=== PATIENT | female | born 1955 | race Caucasian/White ===

== ENCOUNTER 2016-09-17 08:03 | Emergency (ER) | payer OTHER ==
[2016-09-17 08:17] VITALS: BP 131/73
[2016-09-17] MEDS ORDERED: Sodium Chloride 0.9% 1,000 ML IV ONE (08:55)
[2016-09-17 09:06] LABS: CHLORIDE,CL 104 mmol/L (98-115); SODIUM,NA 141 mmol/L (136-145)
--- NOTE | 2016-09-17 09:44 | EDM.PDOC ---
ED HPI GENERAL MEDICAL PROBLEM - General Chief Complaint: Cardiovascular Problem Time Seen by Provider: 09/17/16 08:28 Source of Information: Reports: Patient History Limitations: Reports: No Limitations - History of Present Illness INITIAL COMMENTS - FREE TEXT/NARRATIVE: Patient presents with feelings of racing heart and ache in neck and jaw that started 2.5 hours ago when she got up this morning. She went to work but was not feeling well so came in. She was feeling quite anxious as well as the above symptoms. No chest pain/pressure, nausea, diaphoresis or arm pain. She thinks she is in Atrial Flutter as she has had this on two other occasions: 8 and 12 months ago. On each of those occasions she was successfully cardioverted in her home state of [place]. 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 She takes Eliquis and Cardizem for her Atrial Flutter. A month ago her cardizem was decreased from 240 mg to 120 mg qd, but this morning when she felt the fast heart rate she took the 240 dose. Currently the ache in her neck and jaw is minimal. Bilateral Face Pain Score (Numeric/FACES): 2 - Related Data Allergies Allergy/AdvReac Type Severity Reaction Status Date / Time cefazolin [From Anc] Allergy Hives Verified 09/17/16 08:13 codeine Allergy Irritabilit Verified 09/17/16 08:13 y Home Meds: Home Meds Apixaban [Eliquis] 1 tab PO BID 09/17/16 [History] Biotin 1 cap PO DAILY 09/17/16 [History] Diltiazem HCl [Cardizem LA] 120 mg PO DAILY 09/17/16 [History] Dronedarone HCl [Multaq] 1 tab PO BID 09/17/16 [History] Past Medical History HEENT History: Reports: Impaired Vision Cardiovascular History: Reports: Other (See Below) Other Cardiovascular History: Aflutter with 2 cardioversions in last year Gastrointestinal History: Reports: None, Hiatal Hernia Musculoskeletal History: Reports: None Hematologic History: Reports: Anesthesia Reaction - Infectious Disease History Infectious Disease History: Reports: Chicken Pox, Measles, Mumps, Shingles - Past Surgical History Head Surgeries/Procedures: Reports: None HEENT Surgical History: Reports: Adenoidectomy, Tonsillectomy Cardiovascular Surgical History: Reports: None GI Surgical History: Reports: Bariatric Procedure, Cholecystectomy, Colonoscopy , EGD Female Surgical History: Reports: Other (See Below) Other Female Surgeries/Procedures: bladder sleeves x 2. Musculoskeletal Surgical History: Reports: Arthroscopic Knee, Hip Replacement Dermatological Surgical History: Reports: None Social & Family History - Family History Family Medical History: Noncontributory - Tobacco Use Smoking Status *Q: Current Some Day Smoker Years of Tobacco use: 30 Packs/Tins Daily: 0.2 Used Tobacco, but Quit: No Second Hand Smoke Exposure: No - Caffeine Use Caffeine Use: Reports: None - Recreational Drug Use Recreational Drug Use: Yes Drug Use in Last 12 Months: No Recreational Drug Type: Reports: Marijuana/Hashish Other Recreational Drug Type: used in college Recreational Drug Use Frequency: Not Used In Over 1 Year ED ROS GENERAL - Review of Systems Review Of Systems: See Below Constitutional: Denies: Fever, Chills, Weakness, Diaphoresis HEENT: Denies: Throat Pain, Vision Change Respiratory: Denies: Shortness of Breath, Cough Cardiovascular: Denies: Chest Pain, Lightheadedness, Syncope GI/Abdominal: Denies: Abdominal Pain, Nausea, Vomiting : Denies: Dysuria, Flank Pain Musculoskeletal: Denies: Shoulder Pain, Arm Pain Skin: Denies: Cyanosis, Jaundice, Mottled, Pallor, Diaphoresis Neurological: Denies: Confusion, Dizziness, Headache, Numbness, Trouble Speaking Psychiatric: Reports: Anxiety. Denies: Agitation, Confusion ED EXAM, GENERAL - Physical Exam Exam: See Below Exam Limited By: No Limitations General Appearance: Alert, WD/WN, No Apparent Distress Eye Exam: Bilateral Eye: EOMI, Normal Inspection, PERRL Ears: Normal External Exam, Hearing Grossly Normal Nose: Normal Inspection, No Blood Throat/Mouth: Normal Inspection, Normal Lips, Normal Voice, No Airway Compromise Head: Atraumatic, Normocephalic Neck: Normal Inspection, Supple, Non-Tender, Full Range of Motion Respiratory/Chest: No Respiratory Distress, Lungs Clear, Normal Breath Sounds, No Accessory Muscle Use Cardiovascular: Normal Peripheral Pulses, No Edema, No Gallop, No JVD, No Murmur , Tachycardia (regular) Peripheral Pulses: 2+: Radial (L), Radial (R), Posterior Tibial (L), Posterior Tibial (R) GI/Abdominal: Normal Bowel Sounds, Soft, Non-Tender, No Organomegaly, No Distention Back Exam: Normal Inspection, Full Range of Motion. No: CVA Tenderness (L), CVA Tenderness (R) Extremities: Normal Inspection, Normal Range of Motion Neurological: Alert, Oriented, Normal Cognition, No Motor/Sensory Deficits Psychiatric: Normal Affect, Normal Mood Skin Exam: Warm, Dry, Intact, Normal Color, No Rash Course - Vital Signs Last Recorded V/S: Last Vital Signs Temp 97.3 F 09/17/16 08:14 Pulse 110 H 09/17/16 08:14 Resp 12 09/17/16 08:14 BP 131/73 09/17/16 08:14 Pulse Ox 93 L 09/17/16 08:14 - Orders/Labs/Meds Orders: Active Orders 24 hr Category Date Time Status EKG Documentation Completion [RC] STAT Care 09/17/16 08:21 Active Sodium Chloride 0.9% @ 999 MLS/HR (1000ml) Med 09/17/16 08:55 Ordered Sodium Chloride 0.9% [Normal Saline] 1,000 ml IV .BOLUS EKG 12 Lead [EK] Stat Ther 09/17/16 08:21 Ordered Medication Orders Sodium Chloride (Normal Saline) 1,000 mls @ 999 mls/hr IV .BOLUS ONE Stop: 09/17/16 09:55 Last Admin: 09/17/16 09:09 Dose: 999 mls/hr Labs: Laboratory Tests 09/17/16 09/17/16 Range/Units 08:25 08:25 WBC 6.1 (5.0-10.0) 10^3/uL RBC 4.64 (3.80-5.50) 10^6/uL Hgb 14.9 (12.0-16.0) g/dL Hct 44.1 (37.0-47.0) % MCV 95.2 H (82.0-92.0) fL MCH 32.2 H (27.0-31.0) pg MCHC 33.8 (32.0-36.0) g/dL RDW 12.6 (11.5-14.5) % Plt Count 319 H (150-300) 10^3/uL MPV 6.4 L (7.4-10.4) fL Neut % (Auto) 56.2 (50.0-70.0) % Lymph % (Auto) 32.1 (20.0-40.0) % [place] % (Auto) 8.0 (2.0-8.0) % Eos % (Auto) 1.6 (1.0-3.0) % Baso % (Auto) 2.1 H (0.0-1.0) % Neut # (Auto) 3.4 (2.5-7.0) 10^3/uL Lymph # (Auto) 2.0 (1.0-4.0) 10^3/uL [place] # (Auto) 0.5 (0.1-0.8) 10^3/uL Eos # (Auto) 0.1 (0.1-0.3) 10^3/uL Baso # (Auto) 0.1 (0.0-0.1) 10^3/uL Sodium 141 (136-145) mmol/L Potassium 4.3 (3.3-5.3) mmol/L Chloride 104 (98-115) mmol/L Carbon Dioxide 29.3 (21.0-32.0) mmol/L BUN 12 (6-25) mg/dL Creatinine 0.75 (0.51-1.17) mg/dL Est Cr Clr Drug Dosing 78.54 mL/min Estimated GFR (MDRD) > 60 mL/min Glucose 112 H (70-110) mg/dL Calcium 9.2 (8.7-10.3) mg/dL Total Bilirubin 0.4 (0.2-1.0) mg/dL AST 15 (15-37) U/L ALT 19 (12-78) U/L Alkaline Phosphatase 81 (46-116) IU/L Troponin I < 0.04 (0.00-0.070) ng/mL Total Protein 7.4 (6.4-8.2) g/dL Albumin 3.61 (3.00-4.80) g/dL Meds: Medications Generic Name Dose Route Start Last Admin Trade Name Freq PRN Reason Stop Dose Admin Sodium Chloride 1,000 mls @ 999 mls/hr 09/17/16 08:55 09/17/16 09:09 Normal Saline IV 09/17/16 09:55 999 mls/hr .BOLUS ONE Administration - Re-Assessments/Exams Free Text/Narrative Re-Assessment/Exam: 09/17/16 09:54 Patient has remained stable throughout ER course. CBC and troponin are normal. She still has a very mild ache in jaw and neck which was worse before she arrived in ER. I faxed the EKGs to her customer service specialist (Dr. Garcia "Lg ") for comparison with previous EKGs and discussed this case with a nurse practitioner there. They confirm that pt has had two previous episodes of Atrial Flutter that were successfully converted there. They advise that since patient is anti-coagulated, if she is stable she can safely delay cardioversion and keep rate controlled, also recommended IV fluids now. I discussed this with Dr. López (customer service specialist) at [facility] in [place] since she has had some neck and jaw aching (now improved). We decided to send her to [place] today and got acceptance from hospitalist, Dr. Martinez, who will admit and set her up for inpatient cardioversion. Patient is agreeable with this and since she has been stable will go by private car with her driving. Departure - Departure Time of Disposition: 09:53 Disposition: DC/Tfer to Acute Hospital 02 Reason for Transfer *Q: Other Condition: Good Clinical Impression: Atrial flutter, paroxysmal, Tachycardia with heart rate 100-120 beats per minute Forms: ED Department Discharge Additional Instructions: 1. Go to [facility] for direct admission to Dr. Martinez. 2. Continue your regular medications unless changed during this admission. - My Orders Last 24 Hours: My Active Orders 09/17/16 08:21 EKG Documentation Completion [RC] STAT EKG 12 Lead [EK] Stat 09/17/16 08:55 Sodium Chloride 0.9% @ 999 MLS/HR (1000ml) Sodium Chloride 0.9% [Normal Saline] 1,000 ml IV .BOLUS - Assessment/Plan Last 24 Hours: My Active Orders 09/17/16 08:21 EKG Documentation Completion [RC] STAT EKG 12 Lead [EK] Stat 09/17/16 08:55 Sodium Chloride 0.9% @ 999 MLS/HR (1000ml) Sodium Chloride 0.9% [Normal Saline] 1,000 ml IV .BOLUS
== END 2016-09-17 09:47 ==
LOC: KA.ED 08:03
DX: I48.92 Unspecified atrial flutter (principal); R00.0 Tachycardia, unspecified; F17.210 Nicotine dependence, cigarettes, uncomplicated; Z88.5 Allergy status to narcotic agent; Z79.899 Other long term (current) drug therapy; Z98.890 Other specified postprocedural states; Z90.49 Acquired absence of other specified parts of digestive tract; Z96.649 Presence of unspecified artificial hip joint
CPT/HCPCS: 36415; 80053; 84484; 85025; 93005; 96360; 99285; J7030